=== PATIENT | female | born 1990 | race Caucasian/White ===

== ENCOUNTER 2017-09-19 10:22 | Outpatient (CLI) | payer OTHER, MEDICAID ==
[2017-09-19 11:49] LABS: ALANINE AMINOTRANSFERASE 22 IU/L (13-69); ALBUMIN 3.5 g/dl (3.3-4.9); ALKALINE PHOSPHATASE 139 IU/L (42-121); ASPARTATE AMINO TRANSFERASE 23 IU/L (15-46); BILIRUBIN,INDIRECT 0.3 mg/dl (0-1.1); BILIRUBIN,TOTAL 0.3 mg/dl (0.2-1.3); TOTAL PROTEIN 6.8 g/dl (6.1-8.1)
== END 2017-09-19 12:20 | disposition home or self-care (01) ==
LOC: OBT 10:22 → L-D 10:24 → OBT 12:20
DX: O36.8130 Decreased fetal movements, third trimester, not applicable or unspecified (principal); Z3A.33 33 weeks gestation of pregnancy
CPT/HCPCS: 76818; 80076; 83789

== ENCOUNTER 2017-09-22 09:01 | Outpatient (CLI) | payer OTHER | END 2017-09-22 10:45 | disposition home or self-care (01) | LOC: OBT 09:01 → L-D 09:01 → OBT 10:45 | DX: O26.893 Other specified pregnancy related conditions, third trimester (principal); Z3A.34 34 weeks gestation of pregnancy; R20.2 Paresthesia of skin | CPT/HCPCS: 76818 ==

== ENCOUNTER 2017-09-24 13:05 | Outpatient (CLI) | payer OTHER | END 2017-09-24 14:40 | disposition home or self-care (01) | LOC: OBT 13:05 → L-D 13:05 → OBT 14:40 | DX: O36.8130 Decreased fetal movements, third trimester, not applicable or unspecified (principal); Z3A.34 34 weeks gestation of pregnancy | CPT/HCPCS: 76818 ==

== ENCOUNTER 2017-09-29 08:42 | Outpatient (CLI) | payer OTHER | END 2017-09-29 10:50 | disposition home or self-care (01) | LOC: OBT 08:42 → L-D 08:44 → OBT 10:50 | DX: O26.613 Liver and biliary tract disorders in pregnancy, third trimester (principal); K83.1 Obstruction of bile duct; Z3A.35 35 weeks gestation of pregnancy | CPT/HCPCS: 76818 ==

== ENCOUNTER 2017-11-02 09:27 | Inpatient (IN) | payer OTHER ==
[~2017-11-02 09:27] MED LIST: OXYTOCIN 30 UNITS/LR 500 ML BAG IV
[2017-11-02 11:17] LABS: ADD MAN DIFF? NO
[2017-11-02 11:20] LABS: WHITE BLOOD COUNT 11.2 10^3/ul (4.8-10.8)
[2017-11-02 11:20] LABS: ABNORMAL IP MESSAGE 1; BASOPHIL # 0.1 10^3/ul (0.0-0.1); BASOPHILS % 0.4 % (0.0-2.0); EOSINOPHILS # 0.2 10^3/ul (0.0-0.5); EOSINOPHILS % 1.3 % (0.0-7.0); HEMATOCRIT 38.7 % (37.0-47.0); HEMOGLOBIN 13.3 g/dl (12.0-16.0); LYMPHOCYTES # 2.8 10^3/ul (0.8-2.9); LYMPHOCYTES % 24.8 % (15.0-51.0); MEAN CORPUSCULAR HEMOGLOBIN 32.9 pg (29.0-33.0); MEAN CORPUSCULAR HGB CONC 34.4 g/dl (32.0-37.0); MEAN CORPUSCULAR VOLUME 95.8 fl (82.0-101.0); MEAN PLATELET VOLUME 13.1 fl (7.4-10.4); MONOCYTE # 1.1 10^3/ul (0.3-0.9); MONOCYTES % 9.3 % (0.0-11.0); PLATELET COUNT 162 10^3/UL (140-415); RED BLOOD COUNT 4.04 10^6/ul (4.20-5.40); RED CELL DISTRIBUTION WIDTH 13.4 % (11.5-14.5)
[2017-11-02 11:23] LABS: POSITIVE DIFF @See below
[2017-11-02] MEDS ORDERED: LIDOCAINE 1% (MPF) 30 ML INJ INJ (11:30)
[2017-11-02] MEDS ORDERED: METHYLERGONOVINE 0.2 MG INJ IM ×3 (11:30→21:30)
[2017-11-02] MEDS ORDERED: IBUPROFEN 600 MG TAB PO (11:30)
[2017-11-02] MEDS ORDERED: CARBOPROST 250 MCG INJ IM ×3 (11:30→21:30)
[2017-11-02] MEDS ORDERED: MISOPROSTOL 200 MCG TAB PR ×3 (11:30→21:30)
[2017-11-02] MEDS ORDERED: OXYTOCIN 30 UNITS/LR 500 ML IV ×7 (11:30→21:30)
[2017-11-02 11:51] LABS: INR 0.93; PARTIAL THROMBOPLASTIN TIME 25.8 Sec (25.0-35.0); PROTIME 12.5 Sec (11.9-14.9)
[2017-11-02] MEDS: DINOPROSTONE 10 MG VAG SUPP VAG (11:58)
[2017-11-02] MEDS: LACTATED RINGER'S 1,000 ML IV* ×2 (11:58→17:33)
[2017-11-02 12:18] LABS: HEPATITIS B SURFACE ANTIGEN NEGATIVE (NEGATIVE)
[2017-11-02 15:35] LABS: RAPID PLASMA REAGIN NONREACTIVE (NR)
[2017-11-02] MEDS ORDERED: LACTATED RINGER'S 1,000 ML IV (18:16)
[2017-11-02] MEDS ORDERED: NA PHOSPHATE/BIPHOS 133 ML ENEMA PR ×2 (18:30→21:30)
[2017-11-02] MEDS ORDERED: CEFAZOLIN 2 GM/50 ML (PMX) 50 ML IV ×3 (18:30→21:30)
[2017-11-02] MEDS ORDERED: METHYLERGONOVINE 0.2 MG TAB PO ×2 (18:30→21:30)
[2017-11-02] MEDS ORDERED: CEFAZOLIN 2 GM/50 ML (PMX) 50 ML IVPB (18:30)
[2017-11-02] MEDS ORDERED: LANOLIN 7 GM TUBE TOP ×2 (18:30→21:30)
[2017-11-02] MEDS ORDERED: HYDROCODONE/APAP (5/325) TAB PO ×4 (18:30→21:30)
[2017-11-02] MEDS: LACTATED RINGER'S 1,000 ML IV (19:45)
[2017-11-02] MEDS ORDERED: SENNA/DOCUSATE NA (8.6MG/50MG) TAB PO (21:00)
[2017-11-02] MEDS ORDERED: morphine SULFATE/PF (10 MG/10 ML) INJ (21:14)
[2017-11-02] MEDS ORDERED: OXYTOCIN 10 UNIT INJ (21:14)
[2017-11-02] MEDS ORDERED: BUPIVACAINE 0.75%/DEXT (SPINAL) 2 ML INJ (21:14)
[2017-11-02] MEDS ORDERED: ONDANSETRON 4 MG INJ (21:14)
[2017-11-02] MEDS ORDERED: IBUPROFEN 800 MG TAB PO (22:00)
[2017-11-02] MEDS ORDERED: KETOROLAC 30 MG INJ IV (22:30)
[2017-11-02] MEDS ORDERED: morphine 2 MG INJ IV (22:30)
[2017-11-02] MEDS ORDERED: NALOXONE (0.4 MG/ML) INJ IV (22:30)
[2017-11-02] MEDS: OXYTOCIN 30 UNITS/LR 500 ML IV (23:01)
[2017-11-03] MEDS: ONDANSETRON 4 MG INJ IV (00:12)
[2017-11-03] MEDS: DIPHENHYDRAMINE 50 MG INJ IV (00:42)
[2017-11-03] MEDS: LACTATED RINGER'S 1,000 ML IV ×4 (01:00→21:11)
[2017-11-03] MEDS: OXYTOCIN 30 UNITS/LR 500 ML IV ×7 (02:33→23:00)
[2017-11-03] MEDS: CEFAZOLIN 2 GM/50 ML (PMX) 50 ML IV ×3 (05:32→22:01)
[2017-11-03] MEDS: SENNA/DOCUSATE NA (8.6MG/50MG) TAB PO ×2 (08:33→21:14)
[2017-11-03 09:31] LABS: ADD MAN DIFF? NO
[2017-11-03 09:36] LABS: ABNORMAL IP MESSAGE 1; BASOPHIL # 0.1 10^3/ul (0.0-0.1); BASOPHILS % 0.3 % (0.0-2.0); EOSINOPHILS % 0.1 % (0.0-7.0); HEMATOCRIT 37.5 % (37.0-47.0); HEMOGLOBIN 12.9 g/dl (12.0-16.0); LYMPHOCYTES # 2.6 10^3/ul (0.8-2.9); LYMPHOCYTES % 14.5 % (15.0-51.0); MEAN CORPUSCULAR HEMOGLOBIN 32.9 pg (29.0-33.0); MEAN CORPUSCULAR HGB CONC 34.4 g/dl (32.0-37.0); MEAN CORPUSCULAR VOLUME 95.7 fl (82.0-101.0); MEAN PLATELET VOLUME 13.1 fl (7.4-10.4); MONOCYTE # 1.3 10^3/ul (0.3-0.9); MONOCYTES % 7.5 % (0.0-11.0); NEUTROPHIL # 13.7 10^3/ul (1.6-7.5); NEUTROPHILS % 76.8 % (39.0-77.0); PLATELET COUNT 152 10^3/UL (140-415); RED BLOOD COUNT 3.92 10^6/ul (4.20-5.40); RED CELL DISTRIBUTION WIDTH 13.1 % (11.5-14.5)
[2017-11-03 09:36] LABS: WHITE BLOOD COUNT 17.8 10^3/ul (4.8-10.8)
[2017-11-03 09:41] LABS: POSITIVE DIFF @See below
[2017-11-03] MEDS: CEPHALEXIN 500 MG CAP PO ×2 (17:30→23:44)
[2017-11-03] MEDS: KETOROLAC 30 MG INJ IV (23:45)
[2017-11-04] MEDS: OXYTOCIN 30 UNITS/LR 500 ML IV ×4 (05:11→15:00)
[2017-11-04] MEDS: LACTATED RINGER'S 1,000 ML IV ×2 (05:11→13:11)
[2017-11-04] MEDS: CEPHALEXIN 500 MG CAP PO ×3 (05:31→17:48)
[2017-11-04] MEDS: KETOROLAC 30 MG INJ IV ×3 (05:31→17:49)
[2017-11-04 09:32] LABS: ADD MAN DIFF? NO
[2017-11-04 09:38] LABS: WHITE BLOOD COUNT 18.4 10^3/ul (4.8-10.8)
[2017-11-04 09:38] LABS: ABNORMAL IP MESSAGE 1; BASOPHIL # 0.1 10^3/ul (0.0-0.1); BASOPHILS % 0.3 % (0.0-2.0); EOSINOPHILS # 0.1 10^3/ul (0.0-0.5); EOSINOPHILS % 0.6 % (0.0-7.0); HEMATOCRIT 35.7 % (37.0-47.0); HEMOGLOBIN 12.1 g/dl (12.0-16.0); LYMPHOCYTES # 2.8 10^3/ul (0.8-2.9); MEAN CORPUSCULAR HEMOGLOBIN 31.9 pg (29.0-33.0); MEAN CORPUSCULAR HGB CONC 33.9 g/dl (32.0-37.0); MEAN CORPUSCULAR VOLUME 94.2 fl (82.0-101.0); MEAN PLATELET VOLUME 12.9 fl (7.4-10.4); MONOCYTE # 1.7 10^3/ul (0.3-0.9); MONOCYTES % 9.2 % (0.0-11.0); NEUTROPHIL # 13.6 10^3/ul (1.6-7.5); NEUTROPHILS % 73.8 % (39.0-77.0); PLATELET COUNT 163 10^3/UL (140-415); RED BLOOD COUNT 3.79 10^6/ul (4.20-5.40); RED CELL DISTRIBUTION WIDTH 13.2 % (11.5-14.5)
[2017-11-04] MEDS: SENNA/DOCUSATE NA (8.6MG/50MG) TAB PO ×2 (09:46→20:37)
[2017-11-04 09:51] LABS: POSITIVE DIFF @See below
[2017-11-04] MEDS: BISACODYL (EC) 5 MG TAB PO (15:00)
[2017-11-04] MEDS: HYDROCODONE/APAP (5/325) TAB PO (17:48)
[2017-11-04 18:25] LABS: ADD UMIC YES; UR ASCORBIC ACID NEGATIVE (NEGATIVE); UR BILIRUBIN (Dip) NEGATIVE (NEGATIVE); UR BLOOD (Dip) 3+ mg/dL (NEGATIVE); UR CLARITY CLEAR (CLEAR); UR COLOR STRAW (YELLOW); UR GLUCOSE (Dip) NEGATIVE (NEGATIVE); UR KETONES (Dip) NEGATIVE (NEGATIVE); UR LEUKOCYTE ESTERASE (Dip) NEGATIVE Leu/ul (NEGATIVE); UR NITRITE (Dip) NEGATIVE (NEGATIVE); UR RBC 30 /HPF (0-5); UR SPECIFIC GRAVITY (Dip) 1.003 (1.003-1.030); UR SQUAMOUS EPITHELIAL CELL FEW /HPF (FEW); UR TOTAL PROTEIN (Dip) NEGATIVE (NEGATIVE); UR UROBILINOGEN (Dip) NEGATIVE (NEGATIVE); UR WBC 3 /HPF (0-5)
[2017-11-04] MEDS: IBUPROFEN 800 MG TAB PO (22:10)
[2017-11-05] MEDS: CEPHALEXIN 500 MG CAP PO ×4 (00:34→18:16)
[2017-11-05] MEDS: IBUPROFEN 800 MG TAB PO ×2 (05:40→13:50)
[2017-11-05 08:36] LABS: ADD MAN DIFF? NO
[2017-11-05 08:42] LABS: WHITE BLOOD COUNT 14.4 10^3/ul (4.8-10.8)
[2017-11-05 08:42] LABS: BASOPHIL # 0.1 10^3/ul (0.0-0.1); BASOPHILS % 0.3 % (0.0-2.0); EOSINOPHILS # 0.3 10^3/ul (0.0-0.5); EOSINOPHILS % 1.9 % (0.0-7.0); HEMATOCRIT 37.6 % (37.0-47.0); HEMOGLOBIN 12.8 g/dl (12.0-16.0); LYMPHOCYTES # 2.9 10^3/ul (0.8-2.9); LYMPHOCYTES % 20.2 % (15.0-51.0); MEAN CORPUSCULAR HEMOGLOBIN 32.4 pg (29.0-33.0); MEAN CORPUSCULAR VOLUME 95.2 fl (82.0-101.0); MEAN PLATELET VOLUME 12.2 fl (7.4-10.4); MONOCYTE # 1.1 10^3/ul (0.3-0.9); MONOCYTES % 7.7 % (0.0-11.0); NEUTROPHIL # 9.9 10^3/ul (1.6-7.5); NEUTROPHILS % 68.8 % (39.0-77.0); PLATELET COUNT 198 10^3/UL (140-415); RED BLOOD COUNT 3.95 10^6/ul (4.20-5.40); RED CELL DISTRIBUTION WIDTH 12.9 % (11.5-14.5)
[2017-11-05] MEDS ORDERED: MEASLES,MUMPS,RUBELLA VACCINE INJ SC* (09:00)
[2017-11-05] MEDS: DIPHTH/TET/ACEL PERTUSS (ADULT) 0.5 ML VIAL IM* (09:00)
[2017-11-05] MEDS: SENNA/DOCUSATE NA (8.6MG/50MG) TAB PO (09:42)
[2017-11-05] MEDS: HYDROCODONE/APAP (5/325) TAB PO ×2 (13:56→18:16)
[2017-11-07] MEDS ORDERED: IBUPROFEN 800 MG TAB PO ×2 (06:00)
== END 2017-11-05 20:35 | disposition home or self-care (01) | DRG 766 ==
LOC: L-D 09:27 → PP1 11-03 00:53 → L-D 21:04
PROVIDERS: Obstetrics & Gynecology
PROC: 10D00Z1 Extraction of Products of Conception, Low, Open Approach (ICD-10-PCS; principal; 2017-11-02 08:00)
PROC: 3E0P7VZ Introduction of Hormone into Female Reproductive, Via Natural or Artificial Opening (ICD-10-PCS; 2017-11-02 08:00)
DX: O33.5XX0 Maternal care for disproportion due to unusually large fetus, not applicable or unspecified (principal); O61.0 Failed medical induction of labor; R62.52 Short stature (child); Z3A.39 39 weeks gestation of pregnancy; Z37.0 Single live birth
CPT/HCPCS: 81001; 85025; 85610; 85730; 86592; 86850; 86900; 86901; 87086; 87340; 88305; 90715; 99464